=== PATIENT | male | born 1965 | race African-American/Black ===

== ENCOUNTER 2017-06-29 11:30 | Emergency (ER) | payer SELFPAY ==
[~2017-06-29] VITALS: Ht 185.4 cm; Wt 108.8 kg
[2017-06-29] MEDS ORDERED: IBUPROFEN 800 MG TAB PO ONE (13:45)
--- NOTE | 2017-06-29 14:01 | REP ---
Left shoulder three views : There is no fracture or dislocation. Mineralization and joint spaces are normal. There are no calcifications or foreign bodies. Impression: Negative left shoulder . Signed by Milad Maradiaga MD 06/29/2017 01:53 P
[2017-06-29 14:24] VITALS: BP 158/94
--- NOTE | 2017-06-29 14:29 | REP ---
CT CERVICAL SPINE WITHOUT CONTRAST: HISTORY: Left upper extremity pain. There is no acute fracture or subluxation. Disc bulges are present at the C3-4, C4-5, and C6-7 levels. A disc bulge and small left paracentral disc protrusion with associated osteophyte formation is present at the C5-6 level. There is minimal narrowing of the spinal canal. Uncinate process hypertrophy is present at the C4-5 through C6-7 levels. This produces minimal to mild narrowing of the neural foramina. The C4-5 through C6-7 intervertebral discs are decreased in height consistent with disc degeneration. There is loss of the normal lordotic curve. IMPRESSION: There is cervical spondylosis at the C3-4 through C6-7 levels. Signed by Abelardo Murcia MD 06/29/2017 02:39 P
== END 2017-06-29 14:26 | disposition home or self-care (01) ==
LOC: M ED 11:30
DX: M50.90 Cervical disc disorder, unspecified, unspecified cervical region (principal); S14.3XXA Injury of brachial plexus, initial encounter; G57.92 Unspecified mononeuropathy of left lower limb; Z87.891 Personal history of nicotine dependence; X50.9XXA Other and unspecified overexertion or strenuous movements or postures, initial encounter; Y92.89 Other specified places as the place of occurrence of the external cause; Y93.89 Activity, other specified; Y99.9 Unspecified external cause status

== ENCOUNTER → 2020-06-13 | Outpatient (CLI) | payer SELFPAY ==
[~2020-06-13] MED LIST: HYDR12.55 PO; LISI-538 PO
== END ==
LOC: M LABSMTC 13:52
PROVIDERS: ATTEND Pediatrics
DX: Z20.828 Contact with and (suspected) exposure to other viral communicable diseases (principal); Z11.59 Encounter for screening for other viral diseases